=== PATIENT | male | born 1995 | race Caucasian/White ===

== ENCOUNTER 2017-05-24 13:17 | Emergency (ER) | payer OTHER ==
[2017-05-24 13:27] VITALS: BP 139/78
[2017-05-24] MEDS ORDERED: Lidocaine 1% 20 ML MDV INJECT ONE (13:47)
--- NOTE | 2017-05-24 14:38 | EDM.PDOC ---
ED HPI GENERAL MEDICAL PROBLEM - General Chief Complaint: Laceration Stated Complaint: RT POINTER FINGER Time Seen by Provider: 05/24/17 13:50 Source of Information: Reports: Patient - History of Present Illness INITIAL COMMENTS - FREE TEXT/NARRATIVE: Laceration of the right 2nd finger over the nail bed. 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 [No Known Home Meds] 05/24/17 [History] Past Medical History - Past Health History Medical/Surgical History: Denies Medical/Surgical History Social & Family History - Family History Family Medical History: Noncontributory - Tobacco Use Smoking Status *Q: Never Smoker - Caffeine Use Caffeine Use: Reports: None - Recreational Drug Use Recreational Drug Use: No ED ROS GENERAL - Review of Systems Review Of Systems: ROS reveals no pertinent complaints other than HPI. Constitutional: Reports: No Symptoms HEENT: Reports: No Symptoms ED EXAM, SKIN/RASH Exam: See Below Text/Narrative:: Nail bed laceration, with fracture of very end of the distal phalanges. Exam Limited By: No Limitations General Appearance: Alert Ears: Normal External Exam Nose: Normal Inspection Throat/Mouth: Normal Inspection Head: Atraumatic Respiratory/Chest: No Respiratory Distress GI/Abdominal: Normal Bowel Sounds (Male) Exam: No Hernia Rectal (Males) Exam: Normal Exam Back Exam: Normal Inspection Extremities: Normal Inspection Course - Vital Signs Last Recorded V/S: Last Vital Signs Temp 95.9 F 05/24/17 13:24 Pulse 74 05/24/17 13:24 Resp 20 05/24/17 13:24 BP 139/78 05/24/17 13:24 Pulse Ox 99 05/24/17 13:24 - Orders/Labs/Meds Orders: Active Orders 24 hr Category Date Time Status Fingers Second Digit Rt F6 [CR] Stat Exams 05/24/17 13:42 Ordered Meds: Medications Discontinued Medications Generic Name Dose Route Start Last Admin Trade Name Freq PRN Reason Stop Dose Admin Lidocaine HCl 20 ml 05/24/17 13:47 Xylocaine 1% INJECT 05/24/17 13:48 ONETIME ONE Departure - Departure Time of Disposition: 14:41 (Wound soaked in betadine and saline for 15 minutes. using surgical scrub brush and wound line cleaner wound cleaned irrigated and nails cleaned resoaked and recleaned again for 15 minutes. Xeroorm guaze applied to end of finger, ocvered with telfa, and tube guaze used to finish dressing. Patient toleraed well. Adendum: I used Lidocaine 1% to antesthitize the finger using a digital block after cleanig sides of finger thoroughly prior to scrubbing irrigaing wound.) Disposition: Home, Self-Care 01 Condition: Good Clinical Impression: Open fracture of finger - Discharge Information Forms: ED Department Discharge Additional Instructions: Follow up with your regular doctor in 3 days for a wound check. Take antibiotics as prescribed. may need a orthopedic referral. - My Orders Last 24 Hours: My Active Orders 05/24/17 13:42 Fingers Second Digit Rt F6 [CR] Stat - Assessment/Plan Last 24 Hours: My Active Orders 05/24/17 13:42 Fingers Second Digit Rt F6 [CR] Stat
== END 2017-05-24 14:59 | disposition home or self-care (01) ==
LOC: CC.ED 13:17
DX: S62.630A Displaced fracture of distal phalanx of right index finger, initial encounter for closed fracture (principal); W26.8XXA Contact with other sharp object(s), not elsewhere classified, initial encounter; Y99.0 Civilian activity done for income or pay; Y92.69 Other specified industrial and construction area as the place of occurrence of the external cause
CPT/HCPCS: 73140-F6; 99283